=== PATIENT | male | born 1935 | race Caucasian/White ===

== ENCOUNTER 2017-02-17 15:04 | Inpatient (IN) | payer OTHER, MEDICARE, BC ==
[~2017-02-17] VITALS: Ht 165.1 cm; Wt 106.8 kg
--- NOTE | ~2017-02-17 | CON ---
[place], [place] REPORT OF CONSULTATION NAME: TANJA AMES [facility] #: [id number] UNIT #: [id number] ROOM: 407 DOCTOR: CECILIA HATCH MD BIRTHDATE: [birth year] DOS: 02/18/2017 REASON FOR CONSULTATION: Acute on chronic kidney disease/hyperkalemia. The patient known to you. HISTORY OF PRESENT ILLNESS: This is a 81-year-old male. He has a past medical history of known chronic kidney disease secondary to diabetic nephropathy and hypertensive nephrosclerosis. He has a history of coronary artery disease, anemia, and hyperlipidemia. 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 The patient follows with my partner, Dr. Ontiveros in the office. It seems his baseline creatinine levels have been in the low 2s range with fluctuations at times. From what I can understand, the patient had an outpatient labs at the [facility] and was told to go to the hospital because they were abnormal. When he came in the hospital, his creatinine was 2.8 and potassium was 5.4; therefore, he was admitted. Labs apparently showed this morning a potassium of 6.2. He was given Kayexalate and the patient states he is since he has been in the hospital. He states he felt worse since he was told to come in. Currently, he feels well. He denies shortness of breath, fevers, chills or night sweats. It seems he received some IV fluids and creatinine was 2.3 this morning. He has had some slow progression over time according to the old records of his chronic kidney disease. ALLERGIES: No known drug allergies. HOME MEDICATIONS: Reviewed and include Tylenol, amlodipine, aspirin, Lipitor, Coreg, clonidine, vitamin D, fenofibrate, glyburide, indomethacin, insulin and Prilosec. PAST MEDICAL HISTORY: 1. Known chronic kidney disease as stated above. 2. 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 3. Hypertension. 4. Diabetes mellitus. 5. Cataract. 6. GERD. 7. Gout. 8. Hyperlipidemia. 9. Left ventricular hypertrophy. 10. History of cardiac catheterization. 11. Cataract extraction. 12. Cholecystectomy. 13. Tonsillectomy. 14. Colonoscopy. 15. Hypertension. 16. Anemia. FAMILY HISTORY: Negative for chronic kidney disease, otherwise noncontributory. SOCIAL HISTORY: No tobacco, alcohol or illicit drugs. [place], [place] REPORT OF CONSULTATION NAME: TANJA AMES UNIT #: [id number] ROOM: 407 DOCTOR: CECILIA HATCH MD BIRTHDATE: [birth year] REVIEW OF SYSTEMS: As per HPI, otherwise a 10-point review of systems was reviewed and was negative. PHYSICAL EXAMINATION: VITAL SIGNS: Temperature afebrile, pulse 90, respiratory rate 20, blood pressure 150/64. GENERAL: He is pleasant, awake, alert, resting comfortably, in no acute distress. HEENT: Shows no JVD. Sclerae are anicteric. Mucous membranes are moist. Pharynx is clear. NECK: Supple. Trachea midline. There is no neck lymphadenopathy. There is no thyromegaly. LUNGS: Clear. No crackles, wheezing, or rales. No tactile fremitus. He was not using accessory muscles of respiration. HEART: Normal S1, S2. No rub, thrill or gallop. ABDOMEN: Soft, nontender. There is no organomegaly or rigidity, rebound or guarding. There is no CVA tenderness. EXTREMITIES: He has had no edema. There is no lower extremity lymphadenopathy. Distal pulses are 2+. SKIN: Showed no overt rash. There is no petechiae or purpura. Skin temperature was warm. NEUROLOGIC: He is awake, alert and following commands. Cranial nerves were intact. DIAGNOSTIC DATA: BUN 52, creatinine 2.3, sodium 140, potassium 6.2, carbon dioxide 29, calcium 8.7, phosphorus 3.6, magnesium 1.6. Hemoglobin 8.9, white count of 5.6, platelets 192. IMPRESSION: 1. Acute on chronic kidney disease with a baseline creatinine that appears to be in the low 2s range secondary to diabetic nephropathy and hypertensive nephrosclerosis. The patient has had fluctuating creatinine levels at times and his current creatinine is at baseline. 2. Hyperkalemia, which seems to be a chronic problem with likely type 4 . 3. Anemia of chronic disease. 4. Hypertension. 5. Diabetes mellitus. 6. History of gastroesophageal reflux disease. PLAN: 1. We will check labs today since the patient received Kayexalate with high potassium level. 2. Dose meds for current creatinine clearance. Discontinue IV fluids. His creatinine appears to be at baseline. 3. Place on a potassium restriction. 4. No ELMER inhibitors or ARBs. 5. Clarify if the patient is taking indomethacin. This should be discontinued. NSAIDs should be avoided. 6. If his creatinine remains fairly stable and his potassium is acceptable, he will be fine for discharge and he can follow up with Dr. Ontiveros in the office. [place], [place] REPORT OF CONSULTATION NAME: TANJA AMES UNIT #: [id number] ROOM: 407 DOCTOR: MAMIE SYLVESTER,CECILIA Horton BIRTHDATE: [birth year] Thank you for this consultation. We will follow with you. CECILIA HATCH MD CM:CONSTR:REPORT OF CONSULTATION 1535 02/18/17 2311 interface
--- NOTE | ~2017-02-17 | PR ---
[place], [place] PROGRESS NOTE NAME: TANJA AMES [facility] #: [id number] UNIT #: [id number] ROOM: 407 DOCTOR: CECILIA HATCH MD BIRTHDATE: [birth year] DOS: 02/19/2017 SUBJECTIVE: The patient was seen and examined. He is awake and alert. He feels well. He is being discharged to home. Denies any complaints. Denies shortness of breath. PHYSICAL EXAMINATION: VITAL SIGNS: Temperature afebrile, pulse 76, respiratory rate 20, blood pressure ____. HEENT AND NECK: Shows no JVD. LUNGS: Clear. No wheeze. HEART: Normal S1, S2. No rub, thrill or gallop. ABDOMEN: Soft, nontender. There is no organomegaly. EXTREMITIES: Showed no edema. SKIN: Showed no rash. LABORATORY DATA: Hemoglobin 9.6, white count of 7.0, platelets of 207. BUN 38, creatinine 2.09, sodium 140, potassium 4.8, CO2 of 24, calcium is 8.5. IMPRESSION: 1. Acute on chronic kidney disease. The patient's creatinine is at baseline. 2. Hyperkalemia. This has resolved. 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 Avoid ELMER inhibitors and ARBs at this time. 3. Anemia. H and H are fairly stable. 4. Hypertension. Current medications are to continue. 5. The patient is stable for discharge from renal standpoint. He should follow up with Dr. Ontiveros of our service in the office. CECILIA HATCH MD CM:PNTRANS [phone] CECILIA HATCH MD 02/19/171947 interface
[~2017-02-17 15:04] MED LIST: 8 HOUR650 MG PO; AMLODIPINE BESYL5 MG PO; AMLODIPINE10 MG PO; ASPIRIN81 M1 PO; ATORVASTATIN CA80 M1 PO; BENZONATATE100 M1 PO; BISACODYL5 MG PO; CLINDAMYCIN HC300 MG PO; CLONIDINE0.3 MG PO; COREG12.5 M1 PO; COREG6.25 MG PO; CRESTOR20 MG PO; FENOFIBRATE160 MG PO; FOSINOPRIL SODI40 MG PO; FOSINOPRIL40 MG PO; GLYBURIDE5 MG PO; HYDR25T PO; HYDRALAZINE HYD50 MG PO; HYDROCODONE BIT1 T11 PO; INDOMETHACIN50 MG PO; LASIX40 MG PO; LOPRESSOR25 MG PO; LOW DOSE ASPIRI81 MG PO; METFORMIN500 MG PO; MONOPRIL PO; NORCO 5-325 TA1 EACH PO; NORVASC2.5 MG PO; NOVOLIN N100 U/ML SC; OMEPRAZOLE20 MG PO; PRILOSEC20 M1 PO; PRILOSEC40 M1 PO; TEMAZEPAM15 M1 PO; VITAMIN D50000 I3 PO; [UNRECOGNIZED DRUG - REMARK]
[2017-02-17 15:09] VITALS: BP 171/64
[2017-02-17 15:28] LABS: BASO # 0.1 10*3/uL (0.0-0.1); EOS # 0.2 10*3/uL (0.0-0.4); EOS % 3.8 % (1.0-4.0); HEMATOCRIT 31.3 % (42.0-52.0); HEMOGLOBIN 10.1 g/dl (14.0-18.0); LYMPH # 1.3 10*3/uL (1.3-4.4); LYMPH % 21.5 % (27.0-41.0); MEAN CELL VOLUME 87.4 fl (80.0-94.0); MEAN CORPUSCULAR HGB 28.2 pg (27.0-31.0); MEAN CORPUSCULAR HGB CONC 32.3 g/dl (33.0-37.0); MEAN PLATELET VOLUME 9.4 fl (9.6-12.3); MONO # 0.6 10*3/uL (0.1-1.0); MONO % 9.2 % (3.0-9.0); NEUT # 3.9 10*3/uL (2.3-7.9); NEUT % 64.2 % (47.0-73.0); PLATELET COUNT AUTOMATED 229 10*3/uL (130-400); RED BLOOD COUNT 3.58 10*6/uL (4.50-5.90); RED CELL DISTRI WIDTH 13.9 % (0-14.5); WHITE BLOOD COUNT 6.1 10*3/uL (4.8-10.8)
[2017-02-17 15:36] LABS: ACT PARTIAL THROMBO TIME 24.2 SECONDS (20.8-31.5); INTERNATIONAL NORM RATIO 1.1 (2.0-3.5)
[2017-02-17 15:42] LABS: ALBUMIN 4.1 gm/dl (3.1-4.5); CREATININE 2.81 mg/dL (0.70-1.30); POTASSIUM 5.4 mmol/L (3.5-5.1); TOTAL PROTEIN 8.3 gm/dL (6.4-8.2)
[2017-02-17 16:21] VITALS: BP 134/49
[2017-02-17 16:40] VITALS: BP 134/49
--- NOTE | 2017-02-17 16:45 | NUR ---
A 81, admitted to , under the services of KALIA Castro DO with a diagnosis of acute kidney injury. Chief complaint is pt was at [facility] and had labs drawn. Pt received call today to come to the ER due to labs. Patient arrived via stretcher from ER. Monitor applied. Initial assessment completed. Vital signs taken and recorded. See assessment for past medical history, medications and allergies. Patient oriented to unit. [facility] visitation policy reviewed. WOJCIECH MEDRANO
[2017-02-17 17:00] VITALS: BP 134/62
--- NOTE | 2017-02-17 17:40 | NUR ---
Spoke with Barb at answering service for Dr. Ontiveros. Details regarding consult given to her. Awaiting return call.
[2017-02-17] MEDS ORDERED: FOSINOPRIL SODI40 MG PO (18:22)
[2017-02-17] MEDS ORDERED: RANITIDINE HCL150 M1 PO (18:24)
[2017-02-17] MEDS ORDERED: FUROSEMIDE40 MG PO (18:27)
[2017-02-17] MEDS ORDERED: GABAPENTIN100 M2 PO (18:28)
[2017-02-17] MEDS ORDERED: HYDRALAZINE HYD50 MG PO (18:29)
[2017-02-17] MEDS ORDERED: LANTUS SOL100 UNIT/1 SC (18:30)
[2017-02-17] MEDS ORDERED: HYDR25T PO (18:30)
[2017-02-17] MEDS ORDERED: NOVOLOG FL100 UNIT/1 SC (18:31)
--- NOTE | 2017-02-17 18:33 | NUR ---
Medication reviewed with pt over the phone and med rec updated.
--- NOTE | 2017-02-17 18:34 | NUR ---
Dr. Roth notified that med rec was updated. Also notified that range technician called and pt HR was in high 30's. Pt was sleeping at the time. Dr. Roth states she is aware that pt has a hx of this and he is asymptomatic.
[2017-02-17 20:00] VITALS: BP 129/45
[2017-02-17 20:17] LABS: BILIRUBIN NEGATIVE (NEGATIVE); BLOOD NEGATIVE (NEGATIVE); CLARITY CLEAR (CLEAR); COLOR YELLOW (YELLOW); GLUCOSE NEGATIVE (NEGATIVE); KETONE NEGATIVE (NEGATIVE); LEUKO ESTERASE NEGATIVE (NEGATIVE); NITRITE NEGATIVE (NEGATIVE); PH 5.5 (5.0-9.0); SPECIFIC GRAVITY 1.015 (1.005-1.030); UROBILINOGEN 0.2 E.U./dl (0.2-1.0)
[2017-02-17 20:32] LABS: BACTERIA TRACE; EPITHELIAL CELLS 0-2; WBC 0-2 wbc/hpf (0-5)
[2017-02-18] VITALS: BP 128/50
[2017-02-18 06:16] LABS: BASO # 0.1 10*3/uL (0.0-0.1); BASO % 0.9 % (0.0-1.0); EOS # 0.2 10*3/uL (0.0-0.4); EOS % 4.3 % (1.0-4.0); HEMATOCRIT 28.4 % (42.0-52.0); HEMOGLOBIN 8.9 g/dl (14.0-18.0); LYMPH # 1.4 10*3/uL (1.3-4.4); LYMPH % 24.8 % (27.0-41.0); MEAN CELL VOLUME 87.7 fl (80.0-94.0); MEAN CORPUSCULAR HGB 27.5 pg (27.0-31.0); MEAN CORPUSCULAR HGB CONC 31.3 g/dl (33.0-37.0); MEAN PLATELET VOLUME 9.9 fl (9.6-12.3); MONO # 0.6 10*3/uL (0.1-1.0); MONO % 9.9 % (3.0-9.0); NEUT # 3.3 10*3/uL (2.3-7.9); NEUT % 59.9 % (47.0-73.0); PLATELET COUNT AUTOMATED 192 10*3/uL (130-400); RED BLOOD COUNT 3.24 10*6/uL (4.50-5.90); RED CELL DISTRI WIDTH 13.8 % (0-14.5); WHITE BLOOD COUNT 5.6 10*3/uL (4.8-10.8)
[2017-02-18 06:55] LABS: ALBUMIN 3.4 gm/dl (3.1-4.5); CREATININE 2.32 mg/dL (0.70-1.30); PHOSPHOROUS 3.6 mg/dL (2.5-4.9); TOTAL PROTEIN 7.1 gm/dL (6.4-8.2)
[2017-02-18 06:57] LABS: INTERNATIONAL NORM RATIO 1.1 (2.0-3.5)
[2017-02-18 07:01] LABS: THYROID STIM HORMONE (HS) 2.16 uIU/ml (0.358-4.75)
[2017-02-18 07:05] LABS: POTASSIUM 6.2 mmol/L (3.5-5.1)
--- NOTE | 2017-02-18 07:07 | NUR ---
CRITICAL K 6.2 CALLED [address]DR. PETTY
[2017-02-18 08:00] VITALS: BP 166/56; BP 166/565
[2017-02-18 08:27] LABS: VITAMIN D, 25-HYDROXY 26.7 ng/mL (30-100)
--- NOTE | 2017-02-18 10:02 | NUR ---
MEDICATED PT WITH KAYEXALATE PER ORDER FOR POTASSIUM LEVEL OF 6.2.
--- NOTE | 2017-02-18 11:42 | NUR ---
PT REPORTS HAVING 3 BM'S, PT BECAME NAUSEATED WHILE HAVING BM AND HAD ONE EMESIS. NOTIFIED DR HARLEY.
[2017-02-18 12:00] VITALS: BP 150/64
--- NOTE | 2017-02-18 13:30 | NUR ---
MEDICATED WITH ZOFRAN PER PRN ORDER FOR COMPLAINTS OF NAUSEA AND VOMITING. WILL MONITOR FOR EFFECTIVENESS.
--- NOTE | 2017-02-18 15:00 | NUR ---
PT RESTING MORE COMFORTABLY, STATES ZOFRAN WAS EFFECTIVE FOR NAUSEA.
[2017-02-18 16:00] VITALS: BP 165/52
[2017-02-18 17:56] LABS: CREATININE 2.29 mg/dL (0.70-1.30); POTASSIUM 5.6 mmol/L (3.5-5.1)
[2017-02-18 20:00] VITALS: BP 170/56
--- NOTE | 2017-02-18 20:23 | NUR ---
CALLED DR. PANG FOR PT REPORTING HEART BURN. ORDERS RECIEVED
[2017-02-19] VITALS: BP 158/57
[2017-02-19 06:41] LABS: BASO # 0.1 10*3/uL (0.0-0.1); BASO % 0.9 % (0.0-1.0); EOS # 0.1 10*3/uL (0.0-0.4); EOS % 1.6 % (1.0-4.0); HEMATOCRIT 29.5 % (42.0-52.0); HEMOGLOBIN 9.6 g/dl (14.0-18.0); LYMPH # 1.4 10*3/uL (1.3-4.4); LYMPH % 20.3 % (27.0-41.0); MEAN CELL VOLUME 88.1 fl (80.0-94.0); MEAN CORPUSCULAR HGB 28.7 pg (27.0-31.0); MEAN CORPUSCULAR HGB CONC 32.5 g/dl (33.0-37.0); MEAN PLATELET VOLUME 9.5 fl (9.6-12.3); MONO # 0.8 10*3/uL (0.1-1.0); MONO % 10.8 % (3.0-9.0); NEUT # 4.7 10*3/uL (2.3-7.9); NEUT % 66.1 % (47.0-73.0); PLATELET COUNT AUTOMATED 207 10*3/uL (130-400); RED BLOOD COUNT 3.35 10*6/uL (4.50-5.90); RED CELL DISTRI WIDTH 13.8 % (0-14.5)
[2017-02-19 06:55] LABS: CREATININE 2.09 mg/dL (0.70-1.30); POTASSIUM 4.8 mmol/L (3.5-5.1)
[2017-02-19 08:00] VITALS: BP 160/48
[2017-02-19] MEDS ORDERED: NORVASC5 MG PO (11:37)
[2017-02-19] MEDS ORDERED: VITAMIN D31000 UNI1 PO (11:37)
--- NOTE | 2017-02-19 12:03 | NUR ---
HEPLOCK AND GRAIN HANDLER DISCONTINUED. DISCHARGE INSTRUCTIONS REVIEWED. PT IS CALLING HIS FOR A RIDE HOME.
--- NOTE | 2017-02-19 12:49 | NUR ---
DISCHARGE TEACHING DISCUSSED WITH PATIENT AND HIS , PT DENIES NEEDING WHEELCHAIR AND AMBULATED OFF THE FLOOR WITH HIS AT THIS TIME.
== END 2017-02-19 12:49 | disposition home or self-care (01) | DRG 684 ==
LOC: ED 15:04 → EDHOLD 15:55 → 4E 16:29
PROVIDERS: Emergency Medicine; Hospitalist; Internal Medicine Nephrology; ADMIT Internal Medicine
DX: N17.0 Acute kidney failure with tubular necrosis (principal); E11.22 Type 2 diabetes mellitus with diabetic chronic kidney disease; E11.49 Type 2 diabetes mellitus with other diabetic neurological complication; E87.5 Hyperkalemia; E78.2 Mixed hyperlipidemia; R00.1 Bradycardia, unspecified; I25.10 Atherosclerotic heart disease of native coronary artery without angina pectoris; K21.9 Gastro-esophageal reflux disease without esophagitis; D63.8 Anemia in other chronic diseases classified elsewhere; N18.3 Chronic kidney disease, stage 3 (moderate); E55.9 Vitamin D deficiency, unspecified; E66.01 Morbid (severe) obesity due to excess calories; I13.10 Hypertensive heart and chronic kidney disease without heart failure, with stage 1 through stage 4 chronic kidney disease, or unspecified chronic kidney disease; Z96.1 Presence of intraocular lens; Z87.891 Personal history of nicotine dependence; Z90.49 Acquired absence of other specified parts of digestive tract; Z98.41 Cataract extraction status, right eye; M1A.9XX0 Chronic gout, unspecified, without tophus (tophi); Z82.49 Family history of ischemic heart disease and other diseases of the circulatory system; Z83.3 Family history of diabetes mellitus; Z82.3 Family history of stroke; Z80.9 Family history of malignant neoplasm, unspecified; Z79.82 Long term (current) use of aspirin; Z79.4 Long term (current) use of insulin; Z79.899 Other long term (current) drug therapy; Z68.39 Body mass index [BMI] 39.0-39.9, adult

== ENCOUNTER 2017-02-20 11:00 | Inpatient (IN) | payer MEDICARE, BC, OTHER ==
[~2017-02-20] VITALS: Ht 162.5 cm; Wt 103.1 kg
--- NOTE | ~2017-02-20 | CON ---
[place], [place] REPORT OF CONSULTATION NAME: TANJA AMES [facility] #: [id number] UNIT #: [id number] ROOM: 424 DOCTOR: TIERRA LAMA MD BIRTHDATE: [birth year] DOS: 02/20/2017 REASON FOR CONSULTATION: Elevated troponin and vomiting. HISTORY OF PRESENT ILLNESS: The patient is a 81-year-old man who was sent to the emergency room on 02/19/2017 by his physicians at the [facility] who found hyperkalemia and worsening renal function. In the emergency room, his potassium was 5.4 and creatinine was 2.8. He was treated with IV fluids and Kayexalate. His potassium normalized and his renal function returned to its baseline. He was seen by nephrology who adjusted his calcium channel blockers and stopped ELMER inhibitors. He was allowed to go home, but subsequently developed severe nausea and intractable vomiting. He therefore presented back to the emergency room today and was admitted. At the time of admission, he was noted to have elevation in his troponin at 0.442. It had not been elevated to that degree in the past despite his renal insufficiency and therefore, cardiology was asked to comment on his status. The patient had been admitted to [facility] and transferred to the [facility] in May 2015 when he presented with chest pain. Catheterization done on 05/20/2015 showed a normal left main with mild diffuse disease in the LAD, first and second diagonal branches were felt to be moderate sized without severe disease. The circumflex had a first obtuse marginal branch and no stenosis was seen. The right coronary artery was a dominant vessel with proximal calcification. There was mild disease in the distal vessel and no disease in the right PDA or posterolateral branch. Angiography was not done because of his renal insufficiency. The patient currently has abdominal discomfort, nausea and shaking. He denies any chest pain or dyspnea. PAST MEDICAL HISTORY: Includes: 1. Type 2 diabetes mellitus. 2. Essential hypertension. 3. Hypertensive heart disease with left ventricular hypertrophy. 4. Obesity. 5. Chronic sinus bradycardia, which is asymptomatic. 6. Normocytic anemia. 7. Chronic renal insufficiency, stage 3. 8. History of diabetic neuropathy. 9. Status post cardiac catheterization 05/20/2015, which showed normal left main, mild diffuse LAD stenosis, normal circumflex, proximal right coronary artery calcification with mild distal disease, but no obstructive disease in the PDA or posterolateral branch. 10. History of cholecystectomy, colonoscopy, tonsillectomy and cataract resections. MEDICATIONS: Prior to admission acetaminophen p.r.n., amlodipine 5 mg daily, aspirin 81 mg daily, atorvastatin 80 mg at bedtime, vitamin D 1000 units daily, clonidine 0.3 mg t.i.d., furosemide 40 mg daily, gabapentin 100 mg t.i.d., hydralazine 50 mg t.i.d., hydrochlorothiazide 25 mg daily, omeprazole 40 mg [place], [place] REPORT OF CONSULTATION NAME: TANJA AMES UNIT #: [id number] ROOM: 424 DOCTOR: TIERRA LAMA MD BIRTHDATE: [birth year] daily, ranitidine 150 mg daily, NovoLog insulin 24 units subcutaneously before lunch and supper, Lantus insulin 58 units subcutaneously at bedtime. ALLERGIES: The patient has no known drug allergies. FAMILY HISTORY: The patient's father at age 70 from a stroke. His mother at age 85 from cancer of unknown type. REVIEW OF SYSTEMS: The patient denies diplopia or loss of vision. He feels generally weak and shaking. He denies dyspnea or chest pain. He denies cough or hemoptysis. He denies hematemesis, but he is vomiting. He does have abdominal distention and pain. He denies any peripheral edema. He has not had any syncope or focal weakness. Remainder of the review of systems is negative except as noted above. SOCIAL HISTORY: The patient is and lives with his . He does not consume alcohol or tobacco and does not use illegal drugs. PHYSICAL EXAMINATION: GENERAL: The patient is overweight elderly white male who is awake, alert and oriented. VITAL SIGNS: Pulse is 99 and regular, blood pressure is 224/60. He is afebrile. He weighs 103.1 kg and has a body mass index of 39.1. HEENT: Normocephalic and atraumatic. Extraocular muscles are intact. Sclerae are clear. Pupils are equal, round and react to light. The oral mucosa is moist. Tongue is midline. NECK: Supple. He has no jugular distention. Carotids are full and I heard no bruits. He had no neck or supraclavicular masses and no thyromegaly. LUNGS: Respirations are unlabored. His chest has decreased breath sounds at the bases, but no wheezes or rales. He has no presacral edema. CARDIOVASCULAR: His heart has a regular rhythm with an S4 gallop, but no S3 or murmur. The PMI is not displaced. He has no precordial heave, lift or thrill. ABDOMEN: Soft and normally active without masses, organomegaly or bruits. EXTREMITIES: Showed no edema. Peripheral pulses were felt in the feet. LABORATORY DATA: His electrocardiogram shows sinus rhythm with premature junctional contractions. He has nonspecific ST changes, especially in the lateral leads, but no acute ST elevation. I cannot rule out a previous inferior wall myocardial infarction, but there are no acute changes. IMPRESSIONS: 1. Abdominal pain with an abnormal abdominal x-ray suggesting partial small bowel obstruction. 2. Elevated troponin, most likely due to systemic illness, vomiting, etc. 3. Status post catheterization in May 2015, which showed no significant coronary disease. 4. Hypertension. PLAN: At this point, I do not think that the troponin elevation suggests any acute coronary events. I believe that the myocardial injury demonstrated this [place], [place] REPORT OF CONSULTATION NAME: TANJA AMES UNIT #: [id number] ROOM: 424 DOCTOR: TIERRA LAMA MD BIRTHDATE: [birth year] is probably due to his vomiting, hypotension, hypertension, etc. We will continue to follow him, but no other cardiac workup is planned at this time. We thank the hospitalist physicians for asking our advice regarding his care. TIERRA LAMA MD CM:CONSTR:REPORT OF CONSULTATION 1724 02/20/17 1372 interface
--- NOTE | ~2017-02-20 | PR ---
[place], [place] PROGRESS NOTE NAME: TANJA AMES [facility] #: [id number] UNIT #: [id number] ROOM: 424 DOCTOR: TIERRA LAMA MD BIRTHDATE: [birth year] DOS: 02/22/2017 SUBJECTIVE: The patient was seen at his bedside today, 02/22/2017, for followup of his hypertension and elevated troponin. He is a 81-year-old man who presented to the hospital with abdominal pain and an acute small-bowel obstruction. He did have an elevation in his troponin on admission. His history includes a cardiac catheterization done in May 2015, which showed a normal left main, mild diffuse LAD stenosis. First and second diagonal branches had no severe disease. Circumflex had a first obtuse marginal with no stenoses. The right coronary artery was a dominant vessel with proximal calcification. There was mild disease in the distal vessel. He was managed medically at that time. He does have risk factors of type 2 diabetes mellitus, hypertension and obesity. Since admission, he was treated with GI decompression utilizing an NG tube. He feels much better and has been placed on a liquid diet. PHYSICAL EXAMINATION: VITAL SIGNS: Today his pulse is 99 and regular, blood pressure is 190/74. He is afebrile. He weighs 103.1 kilograms with a body mass index of 39.1. NECK: Supple. He has no jugular distention. Carotids are full. He has no bruits. LUNGS: Respirations are unlabored. His chest is clear. HEART: Has a regular rhythm with an S4 gallop. ABDOMEN: Obese, but soft and normally active. EXTREMITIES: Showed no edema. IMPRESSION: 1. Abdominal pain with x-ray findings consistent with a partial small-bowel obstruction. The patient has improved with NG decompression of his abdomen. The NG has been removed. 2. Elevated troponin. The patient's troponin level did go up substantially, but he showed no signs by electrocardiogram or symptoms of an acute coronary syndrome. As noted above, his catheterization done just under 2 years ago showed no significant stenoses. I think that his elevation in troponin was due to a cardiac response to his systemic illness rather than an acute coronary syndrome. 3. Status post catheterization, May 2015, which showed no significant coronary artery disease. 4. Hypertension. PLAN: We will stop his intravenous beta blockers and place him on oral metoprolol. Thus far, he appears to be responding to conservative management of his bowel obstruction. No other cardiac workup is planned at this time, but we will work to control his blood pressure and pulse. I thank the hospitalist physicians for asking our advice regarding his care. [place], [place] PROGRESS NOTE NAME: TANJA AMES UNIT #: [id number] ROOM: 424 DOCTOR: TIERRA LAMA MD BIRTHDATE: [birth year] TIERRA LAMA MD CM:PNTRANS [phone] TIERRA LAMA MD 02/22/17 1201 interface
--- NOTE | ~2017-02-20 | PR ---
[place], [place] PROGRESS NOTE NAME: TANJA AMES [facility] #: [id number] UNIT #: [id number] ROOM: 424 DOCTOR: TIERRA ALMA MD BIRTHDATE: [birth year] DOS: 02/21/2017 SUBJECTIVE: The patient was seen at his bedside today for followup of his history of mild coronary artery disease and elevated troponin in the setting of an acute small-bowel obstruction. Since I saw him yesterday, an NG tube has been inserted. His abdomen is much more decompressed now and he feels substantially better. He states he still has some shaking in his arms, but it has improved. He denies any chest pain. He was noted, however, overnight to have further elevation in his troponin. The troponin had been around 0.49 and jumped to 1.24. OBJECTIVE: GENERAL: He is a well-nourished white male. He does have an NG tube in place, but he appears very comfortable. VITAL SIGNS: Pulse is 100 and regular; blood pressure is 184/98. He is afebrile. NECK: Supple. He has no jugular distention. Carotids are full. LUNGS: Respirations are unlabored. His chest is clear. HEART: Has a regular rhythm. He has a fourth heart sound, but no third heart sound or significant murmur. ABDOMEN: Soft and hypoactive. EXTREMITIES: Showed no edema. LABORATORY DATA: He does seem to be doing better clinically, despite his elevated troponin. I did review his electrocardiogram and it remains unremarkable. He is in sinus rhythm without any acute ST or T-wave changes. IMPRESSION: 1. Abdominal pain with abnormal abdominal x-ray suggesting partial small-bowel obstruction. 2. Elevated troponin. The level of troponin did go up substantially overnight, but he still shows no signs of acute ischemia on his electrocardiogram and has no chest pain. It is therefore still most likely to be due to a cardiac response to his systemic illness rather than an acute coronary syndrome. 3. Status post catheterization, May 19, which showed no significant coronary artery disease. 4. Hypertension. PLAN: I will start him on intravenous beta-yaw and convert him to oral beta yaw when he is able to take by mouth again. We will continue to follow him with his other physicians, but no other plans for cardiac assessment are pending at this time. I thank the hospitalist physicians for asking our advice regarding his care. [place], [place] PROGRESS NOTE NAME: TANJA AMES UNIT #: [id number] ROOM: 424 DOCTOR: TIERRA LAMA MD BIRTHDATE: [birth year] TIERRA LAMA MD CM:PNTRANS [id number] TIERRA LAMA MD 03/01/17 1916 interface
[2017-02-20 11:00] VITALS: BP 166/72
[~2017-02-20 11:00] MED LIST changes: +FUROSEMIDE40 MG PO; +GABAPENTIN100 M2 PO; +LANTUS SOL100 UNIT/1 SC; +NORVASC5 MG PO; +NOVOLOG FL100 UNIT/1 SC; +RANITIDINE HCL150 M1 PO; +VITAMIN D31000 UNI1 PO
[2017-02-20 11:33] LABS: ACT PARTIAL THROMBO TIME 21.3 SECONDS (20.8-31.5); INTERNATIONAL NORM RATIO 1.2 (2.0-3.5)
[2017-02-20 11:34] LABS: BASO # 0.1 10*3/uL (0.0-0.1); BASO % 0.6 % (0.0-1.0); EOS % 0.1 % (1.0-4.0); HEMATOCRIT 32.6 % (42.0-52.0); HEMOGLOBIN 10.7 g/dl (14.0-18.0); LYMPH # 0.9 10*3/uL (1.3-4.4); LYMPH % 10.5 % (27.0-41.0); MEAN CELL VOLUME 84.9 fl (80.0-94.0); MEAN CORPUSCULAR HGB 27.9 pg (27.0-31.0); MEAN CORPUSCULAR HGB CONC 32.8 g/dl (33.0-37.0); MEAN PLATELET VOLUME 9.5 fl (9.6-12.3); MONO # 0.5 10*3/uL (0.1-1.0); MONO % 5.5 % (3.0-9.0); NEUT # 7.2 10*3/uL (2.3-7.9); PLATELET COUNT AUTOMATED 225 10*3/uL (130-400); RED BLOOD COUNT 3.84 10*6/uL (4.50-5.90); RED CELL DISTRI WIDTH 13.6 % (0-14.5); WHITE BLOOD COUNT 8.7 10*3/uL (4.8-10.8)
[2017-02-20 11:41] LABS: ALBUMIN 3.9 gm/dl (3.1-4.5); CREATININE 2.04 mg/dL (0.70-1.30); TOTAL PROTEIN 8.1 gm/dL (6.4-8.2)
[2017-02-20 11:44] VITALS: BP 153/93
[2017-02-20 11:44] LABS: TROPONIN I 0.442 ng/ml (<0.045)
--- NOTE | 2017-02-20 11:57 | NUR ---
ACTIVELY VOMITING AFTER PHENERGAN. 200 CC OF GREEN EMESIS. MARK KIDD RN
[2017-02-20 12:14] VITALS: BP 164/95
--- NOTE | 2017-02-20 14:02 | NUR ---
PATIENT WITHOUT RELIEF OF N/V AFTER DOSES OF PHENERGAN.
[2017-02-20 15:30] VITALS: BP 224/60
--- NOTE | 2017-02-20 15:30 | NUR ---
A 81, admitted to , under the services of KALIA Conroy DO with a diagnosis of ELEVATED TROPONIN, INTRACTABLE NAUSEA/VOMITING. Chief complaint is NAUSEA, VOMITING. Patient arrived via bed from ER. Monitor applied. Initial assessment completed. Vital signs taken and recorded. KALIA CONROY DO notified of admission to the unit. Orders received. See assessment for past medical history, medications and allergies. Patient and/or family oriented to unit. [facility]. Clothing/patient valuable form completed. MIGUEL BOB
[2017-02-20 16:00] VITALS: BP 224/60
--- NOTE | 2017-02-20 17:45 | NUR ---
NOTIFIED OF CONSULT & SAW PT WHILE ON FLOOR. ALSO NOTIFIED AND ORDERS OBTAINED FOR IV FLUIDS.
--- NOTE | 2017-02-20 18:00 | NUR ---
16 NG tube inserted and secured without difficulty via RIGHT nares. Patient tolerated procedure well. Connected to intermittent suction. PLACEMENT CONFIRMED WITH AIR. MIGUEL BOB
[2017-02-20 20:00] VITALS: BP 210/68
--- NOTE | 2017-02-20 20:00 | NUR ---
ASSUMED CARE OF PATIENT. ASSESSMENT COMPLETE. RT REN NG TO LOW INTERMITTENT SUCTION, DRAINING GREEN. MADE AWARE OF NEED FOR URINE SPECIMEN AND ALSO NPO STATUS, PT VERBALIZES UNDERSTANDING. CALL LIGHT IN REACH. WILL CONTINUE TO MONITOR.
--- NOTE | 2017-02-20 21:00 | NUR ---
PT BP 210/70. PT VOMITTING, [facility] ZOFRAN NOT EFFECTIVE. PT C/O ABDOMINAL PAIN RATES 11/10, ONLY PO NORCO ORDERED, PT NPO. CALLED AND SPOKE TO DR AUSTIN. HE STATES HE WILL PUT ORDERS IN FOR PHENERGHAN, HYDRALAZINE, AND DILAUDID.
--- NOTE | 2017-02-20 22:57 | NUR ---
NG TUBE OUT OF PLACE. NEW NG INSERTED. CXR AT BEDSIDE TO VERIFY PLACEMENT AT THIS TIME
--- NOTE | 2017-02-20 23:33 | NUR ---
MEDICATED WITH PRN DILAUDID, PHENERGAN, AND APRESOLINE FOR C/O LOWER ABDOMINAL PAIN 8/10, NAUSEA/VOMITING, AND BP 210/70. WILL MONITOR FOR EFFECTIVENESS OF THESE MEDICATIONS
--- NOTE | 2017-02-20 23:44 | NUR ---
CXR VERIFIED PLACEMENT OF NG TUBE. CONNECTED TO LOW INTERMITTENT SUCTION AT THIS TIME.
[2017-02-21] VITALS: BP 228/72
--- NOTE | 2017-02-21 00:22 | NUR ---
PT POX 87% ON ROOM AIR. PLACED ON 2L NC. POX 94%
[2017-02-21 00:27] VITALS: BP 160/64
--- NOTE | 2017-02-21 00:30 | NUR ---
BP RECHECK 160/64. MADE DR AUSTIN AWARE. NO FURTHER ORDERS RECEIVED.
--- NOTE | 2017-02-21 00:33 | NUR ---
NO FURTHER VOMITING AT THIS TIME, PRN PHENERGAN AND JOANN ZOFRAN APPEAR TO BE EFFECTIVE. PT STATES PAIN IS NOW A 3-4/10 AND STATES DILAUDID WAS EFFECTIVE
--- NOTE | 2017-02-21 02:00 | NUR ---
PT SLEEPING. NO SIGNS OF DISTRESS NOTED AT THIS TIME. IVF INFUSING PER ORDER. NG PATENT TO LOW INT SUCTION. CALL LIGHT IN REACH. WILL CONTINUE TO MONITOR.
--- NOTE | 2017-02-21 04:40 | NUR ---
MEDICATED WITH PRN DILAUDID FOR C/O ABDOMINAL PAIN. RATES 11/10.
--- NOTE | 2017-02-21 05:31 | NUR ---
PER PATIENT, EARLIER DILAUDID EFFECTIVE
[2017-02-21 06:37] LABS: BASO % 0.2 % (0.0-1.0); HEMATOCRIT 31.7 % (42.0-52.0); HEMOGLOBIN 10.2 g/dl (14.0-18.0); LYMPH # 0.8 10*3/uL (1.3-4.4); LYMPH % 6.5 % (27.0-41.0); MEAN CELL VOLUME 87.8 fl (80.0-94.0); MEAN CORPUSCULAR HGB 28.3 pg (27.0-31.0); MEAN CORPUSCULAR HGB CONC 32.2 g/dl (33.0-37.0); MEAN PLATELET VOLUME 9.6 fl (9.6-12.3); MONO # 1.3 10*3/uL (0.1-1.0); MONO % 10.4 % (3.0-9.0); NEUT # 9.9 10*3/uL (2.3-7.9); NEUT % 82.3 % (47.0-73.0); PLATELET COUNT AUTOMATED 244 10*3/uL (130-400); RED BLOOD COUNT 3.61 10*6/uL (4.50-5.90); RED CELL DISTRI WIDTH 14.2 % (0-14.5); WHITE BLOOD COUNT 12.1 10*3/uL (4.8-10.8)
--- NOTE | 2017-02-21 06:48 | NUR ---
PT STATES DILAUDID EFFECTIVE
[2017-02-21 07:07] LABS: ACT PARTIAL THROMBO TIME 19.8 SECONDS (20.8-31.5); INTERNATIONAL NORM RATIO 1.1 (2.0-3.5)
[2017-02-21 07:08] LABS: ALBUMIN 3.9 gm/dl (3.1-4.5); CREATININE 2.35 mg/dL (0.70-1.30); POTASSIUM 4.1 mmol/L (3.5-5.1)
[2017-02-21 07:15] LABS: THYROID STIM HORMONE (HS) 1.14 uIU/ml (0.358-4.75); TOTAL PROTEIN 7.9 gm/dL (6.4-8.2)
[2017-02-21 07:34] LABS: VITAMIN D, 25-HYDROXY 18.3 ng/mL (30-100)
[2017-02-21 08:00] VITALS: BP 184/98
--- NOTE | 2017-02-21 08:32 | NUR ---
PT REQUESTED MEDICATION FOR PAIN. PAIN LOCATED IN THE ABDOMEN. PAIN IS DESCRIBED CONSTANT AND SHARP. PAIN IS INCREASED WITH HICCUPS. PAIN IS RATED AT 8 OUT OF 10. DILAUDID GIVEN.
--- NOTE | 2017-02-21 08:55 | NUR ---
NOTIFIED OF CRITICAL TROPONIN LEVELS REPORTED BY LAB.
--- NOTE | 2017-02-21 09:00 | NUR ---
Front Desk Person in to talk to patient. Patient states lives at home with . There are few steps in the home. Physician: giana Pharmacy: [facility] Home health services: none Patient's level of ADLs: MINIMAL ASSIST Patient has working utilities: all working DME: none Follow-up physician's appointment after d/c: will be made by hospitalist nurse director upon discharge Does patient want to access PORTAL?: no Discharge plan discussed with patient, patient lives at home with , states he will be going back when able and denies any home needs. BRIAN MEHTA
--- NOTE | 2017-02-21 09:01 | NUR ---
PER PT, PRN PAIN MEDICATION WAS EFFECTIVE FOR PAIN. WILL CONTINUE TO MONITOR.
--- NOTE | 2017-02-21 11:33 | NUR ---
PT REQUESTED PRN PAIN MEDICATION FOR ABDOMINAL PAIN. PAIN IS DESCRIBED CONSTANT, SHARP, AND BROUGHT ON BY HICCUPS. PAIN RATED AT 10 OUT OF 10. DILAUDID GIVEN. WILL CONTINUE TO MONITOR.
[2017-02-21 12:00] VITALS: BP 177/82
--- NOTE | 2017-02-21 12:00 | NUR ---
PRN PAIN MEDICATION EFFECTIVE PER PT. WILL CONTINUE TO MONITOR.
--- NOTE | 2017-02-21 13:24 | NUR ---
PHYSICAL THERAPY PAtient with NG Tube and high /+ Tropins. Will check patients status at alater date. Thank you for this referral. Yohana Osborne,PT
--- NOTE | 2017-02-21 14:10 | NUR ---
PT REQUESTED PRN PAIN MEDICATION FOR PAIN OF THE ABDOMEN. PAIN RATED AT 8 OUT OF 10 AND DESCRIBED CONSTANT AND SHARP AND BROUGHT ON BY HICCUPS. DILAUDID GIVEN. WILL CONTINUE TO MONITOR.
--- NOTE | 2017-02-21 14:30 | NUR ---
CRITICAL TROPONIN 0.932. NOTIFIED . NO NEW ORDERS.
--- NOTE | 2017-02-21 14:42 | NUR ---
PER PT, PRN PAIN MEDICATION WAS EFFECTIVE. WILL CONTINUE TO MONITOR.
--- NOTE | 2017-02-21 15:24 | NUR ---
DEANDRA NOTIFIED THIS NURSE THAT THE PTs NG TUBE HAS CAME OUT. RN, JEFFERSON EDMOND ASKED TO PLACE A NEW NG TUBE AND AGREED TO DO SO.
[2017-02-21 16:00] VITALS: BP 160/75
--- NOTE | 2017-02-21 18:18 | NUR ---
PT REQUESTED PRN PAIN MEDICATION FOR ABDOMINAL PAIN. PAIN IS RATED AT 9 OUT OF 10 AND DESCRIBED CONSTANT AND SHARP AND BROUGHT ON BY HICCUPS. PRN DILAUDID GIVEN. WILL CONTINUE TO MONITOR.
--- NOTE | 2017-02-21 18:32 | NUR ---
PTs NG TUBE CAME OUT FROM UNKOWN REASONS. NOTIFIED AND RECIEVED ORDERS TO KEEP THE NG TUBE OUT AND TO "GIVE THE PT A BREAK". WILL CONTINUE TO MONITOR.
--- NOTE | 2017-02-21 18:54 | NUR ---
PER PT, PRN PAIN MEDICTION WAS EFFECTIVE. WILL CONTINUE TO MONITOR.
--- NOTE | 2017-02-21 19:44 | NUR ---
DR. CASIANO IN TO SEE PATIENT AT THIS TIME, STATED THAT THE PATIENT MAY HAVE A COUPLE CUPS OF ICE CREAM AND THAT HE WILL PLACE THE PATIENT ON A CLEAR LIQUID DIET AND GIVE HIM SOMETHING TO HELP HIM MOVE HIS BOWELS.
[2017-02-21 20:00] VITALS: BP 170/84
[2017-02-22] VITALS (9 sets, daily range): BP systolic 144–210; BP diastolic 60–81
--- NOTE | 2017-02-22 00:58 | NUR ---
DR. HAYES NOTIFIED OF HIGH BP 190/78.
--- NOTE | 2017-02-22 02:45 | NUR ---
ATTEMPTED TO CALL DR. AUSTIN AT THIS TIME TO NOTIFY OF PATIENTS BLOOD PRESSURE CONTINUING TO BE ELEVATED. NO ANSWER, WILL RETRY
--- NOTE | 2017-02-22 03:11 | NUR ---
DR. Steve LAW NOTIFIED OF PATIENTS BLOOD PRESSURE 1 HOUR AFTER IV LOPRESSOR GIVEN TO BE 188/72 MANUALLY. THIS NURSE STATED THAT THE PATIENTS HOME MEDS WERE NEVER CONTINUED BECAUSE THE PATIENT WAS NPO UNTIL 8PM 02/21. DR. LAW STATED THAT SHE WOULD PUT IN THE PATIENTS BLOOD PRESSURE PILLS FROM HOME, AND GIVE THE PATIENT THE SAME DOSE OF IV HYDRALAZINE THAT HE RECIEVED LAST NIGHT OF 10MG AND IF THE PATIENTS BLOOD PRESSURE DROPS TOO MUCH WE CAN HOLD THE MORNING DOSES OF BLOOD PRESSURE PILLS
--- NOTE | 2017-02-22 03:39 | NUR ---
DURING MED PASS PT RESTING AND AROUSES EASILY. COVERED WITH BLANKET PER PT REQUEST.
--- NOTE | 2017-02-22 04:29 | NUR ---
DR. Steve LAW NOTIFIED OF PATIENTS HEART RATE INCREASING TO 140'S WITH EXERTION TO THE BATHROOM. PATIENT ASYMPTOMATIC. THIS NURSE STATED THAT IT GOES BACK DOWN WITH REST. DR. LAW STATED THAT THIS CAN BE A SIDE EFFECT OF HYDRALAZINE AND TO JUST WATCH THE PATIENT.
--- NOTE | 2017-02-22 06:37 | NUR ---
PT UP TO RR, ENCOURAGED TO USE THE BEDSIDE COMMODE WHICH HE COMPLIED.
[2017-02-22 07:54] LABS: BASO # 0.1 10*3/uL (0.0-0.1); BASO % 0.4 % (0.0-1.0); EOS % 0.1 % (1.0-4.0); HEMATOCRIT 30.1 % (42.0-52.0); HEMOGLOBIN 9.7 g/dl (14.0-18.0); LYMPH % 7.4 % (27.0-41.0); MEAN CELL VOLUME 89.9 fl (80.0-94.0); MEAN CORPUSCULAR HGB CONC 32.2 g/dl (33.0-37.0); MEAN PLATELET VOLUME 9.8 fl (9.6-12.3); MONO % 7.3 % (3.0-9.0); NEUT # 11.2 10*3/uL (2.3-7.9); NEUT % 83.9 % (47.0-73.0); PLATELET COUNT AUTOMATED 228 10*3/uL (130-400); RED BLOOD COUNT 3.35 10*6/uL (4.50-5.90); RED CELL DISTRI WIDTH 14.2 % (0-14.5); WHITE BLOOD COUNT 13.3 10*3/uL (4.8-10.8)
[2017-02-22 08:07] LABS: CREATININE 2.91 mg/dL (0.70-1.30); POTASSIUM 4.3 mmol/L (3.5-5.1)
--- NOTE | 2017-02-22 08:25 | NUR ---
PHYSICAL THERAPY PAtient evaluated on 4, full evaluation to follow. Continue with PT as per plan of care with fall, NG tube, NPO, min (A) and acute debility precautions. Patient may require SNF for impaired mobility versus home with home health, pending progress and medical outcomes. PAtient is high complexity via chart review, tests and evaluation: 48721. Thank you for this referral. eligio Osborne,PT
--- NOTE | 2017-02-22 08:30 | NUR ---
PHYSICAL THERAPY PAtient evaluated on 4, full evaluation to follow. Continue with PT as per plan of care with fall, NG tube, NPO, min (A) and acute debility precautions. Patient may require SNF for impaired mobility versus home with home health, pending progress and medical outcomes. PAtient is high complexity via chart review, tests and evaluation: 35967. Thank you for this referral. eligio Osborne,PT
--- NOTE | 2017-02-22 09:00 | NUR ---
case management visits with patient, patient denies any home needs
--- NOTE | 2017-02-22 09:57 | NUR ---
PHYSICAL THERAPY Patient refused therapy this morning saying he just walked with the evaluating therapist and he is too hot right to do therapy. He also refused to transfer to the bedside chair, saying he just got back into bed from sitting in the chair. HOWARD SHERIFF SOAPING DEPARTMENT SUPERVISOR
--- NOTE | 2017-02-22 13:23 | NUR ---
PHYSICAL THERAPY Patient presented to therapy with report of wanting to do therapy and feeling much better. Patient performed sit to stand from bedside chair with CGA X 1. Patient performed gait with W/W and CGA X 1 FOR 120' X 1 with no LOB and no other difficulty. Patient was left in seated position with call light within reach. Patient was 1:1 with this FILTER PRESS TENDER FOR 15 MINUTES TOTAL. HOWARD SHERIFF FILTER PRESS TENDER
--- NOTE | 2017-02-22 20:30 | NUR ---
BP ELEVATED; INFORMED DR. PENNY AUSTIN.
[2017-02-23] VITALS: BP 175/57
--- NOTE | 2017-02-23 01:21 | NUR ---
DR. LAW CONTACTED IN REGARDS TO PT. BLOOD PRESSURE BEING 182/68, SEE NEW ORDERS.
[2017-02-23 03:53] LABS: BILIRUBIN NEGATIVE (NEGATIVE); BLOOD TRACE-INTACT (NEGATIVE); CLARITY CLEAR (CLEAR); COLOR YELLOW (YELLOW); GLUCOSE 1+ (NEGATIVE); KETONE NEGATIVE (NEGATIVE); LEUKO ESTERASE NEGATIVE (NEGATIVE); NITRITE NEGATIVE (NEGATIVE); PH 5.5 (5.0-9.0); UROBILINOGEN 0.2 E.U./dl (0.2-1.0)
[2017-02-23 04:05] LABS: BACTERIA 3+; CALCIUM OXALATE CRYSTALS 1+; WBC 0-2 wbc/hpf (0-5)
[2017-02-23 06:00] LABS: BASO # 0.1 10*3/uL (0.0-0.1); BASO % 0.5 % (0.0-1.0); EOS # 0.1 10*3/uL (0.0-0.4); EOS % 0.7 % (1.0-4.0); HEMATOCRIT 30.1 % (42.0-52.0); HEMOGLOBIN 9.7 g/dl (14.0-18.0); LYMPH # 1.3 10*3/uL (1.3-4.4); LYMPH % 12.3 % (27.0-41.0); MEAN CELL VOLUME 88.3 fl (80.0-94.0); MEAN CORPUSCULAR HGB 28.4 pg (27.0-31.0); MEAN CORPUSCULAR HGB CONC 32.2 g/dl (33.0-37.0); MEAN PLATELET VOLUME 9.9 fl (9.6-12.3); MONO # 0.8 10*3/uL (0.1-1.0); NEUT # 8.2 10*3/uL (2.3-7.9); NEUT % 77.9 % (47.0-73.0); PLATELET COUNT AUTOMATED 231 10*3/uL (130-400); RED BLOOD COUNT 3.41 10*6/uL (4.50-5.90); RED CELL DISTRI WIDTH 14.1 % (0-14.5); WHITE BLOOD COUNT 10.4 10*3/uL (4.8-10.8)
[2017-02-23 06:18] LABS: CREATININE 2.1 mg/dL (0.70-1.30); POTASSIUM 4.2 mmol/L (3.5-5.1)
--- NOTE | 2017-02-23 07:30 | NUR ---
Patient resting quietly with no c/o discomfort. Respirations easy and regular. Vital signs stable. No overt distress. LUKE YIN
[2017-02-23 08:00] VITALS: BP 153/46
[2017-02-23] MEDS ORDERED: AMLODIPINE BESY10 MG PO (10:42)
--- NOTE | 2017-02-23 10:59 | NUR ---
PHYSICAL THERAPY Patient refused therapy this AM, states he is waiting on his because he wants to go home and has been walking in his room all morning. Kristal Canada, POWER TONG OPERATOR
--- NOTE | 2017-02-23 12:20 | NUR ---
Discharge instructions reviewed with patient/family. Patient receptive and verbalizes understanding. Follow-up care arranged. Written instructions given to patient/family. LUKE YIN
--- NOTE | 2017-02-24 07:53 | NUR ---
PHYSICAL THERAPY CO-SIGN I approve of the Phyical Therapy notes written above. RADHA BOOTH PT
== END 2017-02-23 12:20 | disposition home or self-care (01) | DRG 388 ==
LOC: ED 11:00 → 4E 12:31 → EDHOLD 12:31 → 4E 14:52
PROVIDERS: Emergency Medicine; Internal Medicine; Student in an Organized Health Care Education/Training Program; ADMIT Internal Medicine
PROC: 0D9670Z Drainage of Stomach with Drainage Device, Via Natural or Artificial Opening (ICD-10-PCS; principal; 2017-02-20)
DX: K56.609 Unspecified intestinal obstruction, unspecified as to partial versus complete obstruction (principal); R65.11 Systemic inflammatory response syndrome (SIRS) of non-infectious origin with acute organ dysfunction; E11.22 Type 2 diabetes mellitus with diabetic chronic kidney disease; Z68.41 Body mass index [BMI] 40.0-44.9, adult; E11.42 Type 2 diabetes mellitus with diabetic polyneuropathy; N18.3 Chronic kidney disease, stage 3 (moderate); I13.10 Hypertensive heart and chronic kidney disease without heart failure, with stage 1 through stage 4 chronic kidney disease, or unspecified chronic kidney disease; E66.01 Morbid (severe) obesity due to excess calories; E83.42 Hypomagnesemia; D72.810 Lymphocytopenia; M10.072 Idiopathic gout, left ankle and foot; Z96.1 Presence of intraocular lens; E78.5 Hyperlipidemia, unspecified; K21.9 Gastro-esophageal reflux disease without esophagitis; Z98.42 Cataract extraction status, left eye; Z98.41 Cataract extraction status, right eye; Z90.49 Acquired absence of other specified parts of digestive tract; Z82.3 Family history of stroke; Z80.9 Family history of malignant neoplasm, unspecified; Z79.1 Long term (current) use of non-steroidal anti-inflammatories (NSAID); Z79.82 Long term (current) use of aspirin; Z79.4 Long term (current) use of insulin; Z79.899 Other long term (current) drug therapy; E87.5 Hyperkalemia

== ENCOUNTER 2017-04-06 11:16 | Inpatient (IN) | payer OTHER ==
[~2017-04-06] VITALS: Ht 162.5 cm; Wt 100.2 kg
[~2017-04-06 11:16] MED LIST changes: +AMLODIPINE BESY10 MG PO
[2017-04-06 11:43] VITALS: BP 163/63
[2017-04-06 11:58] LABS: BASO # 0.1 10*3/uL (0.0-0.1); BASO % 1.1 % (0.0-1.0); EOS # 0.2 10*3/uL (0.0-0.4); EOS % 2.4 % (1.0-4.0); HEMATOCRIT 34.3 % (42.0-52.0); HEMOGLOBIN 10.9 g/dl (14.0-18.0); LYMPH # 1.8 10*3/uL (1.3-4.4); LYMPH % 17.8 % (27.0-41.0); MEAN CELL VOLUME 88.2 fl (80.0-94.0); MEAN CORPUSCULAR HGB CONC 31.8 g/dl (33.0-37.0); MEAN PLATELET VOLUME 9.1 fl (9.6-12.3); MONO # 0.8 10*3/uL (0.1-1.0); MONO % 8.2 % (3.0-9.0); NEUT # 6.9 10*3/uL (2.3-7.9); NEUT % 70.3 % (47.0-73.0); PLATELET COUNT AUTOMATED 353 10*3/uL (130-400); RED BLOOD COUNT 3.89 10*6/uL (4.50-5.90); RED CELL DISTRI WIDTH 13.7 % (0-14.5); WHITE BLOOD COUNT 9.8 10*3/uL (4.8-10.8)
[2017-04-06 12:16] LABS: ALBUMIN 4.4 gm/dl (3.1-4.5); ALKALINE PHOSPHATASE 76 U/L (45-117); BUN 51 mg/dl (7-24); CHLORIDE 106 mmol/L (98-107); POTASSIUM 5.9 mmol/L (3.5-5.1); SGOT/AST 17 IU/L (3-35); SGPT/ALT 27 U/L (12-78); SODIUM 138 mmol/L (136-145); TOTAL PROTEIN 8.6 gm/dL (6.4-8.2)
[2017-04-06 12:17] LABS: TROPONIN I < 0.015 ng/ml (<0.045)
[2017-04-06 13:00] VITALS: BP 123/44
[2017-04-06 14:00] VITALS: BP 190/56
[2017-04-06] MEDS ORDERED: NOVOLOG10 ML SC (14:39)
[2017-04-06 14:40] VITALS: BP 120/64
[2017-04-06 14:42] VITALS: BP 178/61
[2017-04-06 15:37] LABS: BILIRUBIN NEGATIVE (NEGATIVE); BLOOD NEGATIVE (NEGATIVE); CLARITY CLEAR (CLEAR); COLOR YELLOW (YELLOW); GLUCOSE NEGATIVE (NEGATIVE); KETONE NEGATIVE (NEGATIVE); LEUKO ESTERASE NEGATIVE (NEGATIVE); NITRITE NEGATIVE (NEGATIVE); SPECIFIC GRAVITY 1.015 (1.005-1.030); UROBILINOGEN 0.2 E.U./dl (0.2-1.0)
[2017-04-06 15:43] LABS: BACTERIA TRACE; EPITHELIAL CELLS 0-3; WBC 0-2 wbc/hpf (0-5)
[2017-04-06 15:47] LABS: URINE CREATININE RANDOM 66.3 mg/dL
[2017-04-06] MEDS ORDERED: NORVASC5 MG PO (17:30)
[2017-04-06] MEDS ORDERED: HYDRALAZINE HYD50 MG PO (17:31)
[2017-04-06] MEDS ORDERED: BETADINE T (17:34)
[2017-04-06] MEDS ORDERED: HYDROCHLOROTHIA25 M1 PO (17:36)
[2017-04-06 20:00] VITALS: BP 138/64
[2017-04-07] VITALS: BP 156/74
[2017-04-07 06:09] LABS: ALBUMIN 3.8 gm/dl (3.1-4.5); CREATININE 2.12 mg/dL (0.70-1.30); POTASSIUM 5.2 mmol/L (3.5-5.1)
[2017-04-07 06:10] LABS: PHOSPHOROUS 3.2 mg/dL (2.5-4.9)
[2017-04-07 06:12] LABS: BASO # 0.1 10*3/uL (0.0-0.1); BASO % 1.3 % (0.0-1.0); EOS # 0.3 10*3/uL (0.0-0.4); EOS % 3.3 % (1.0-4.0); HEMATOCRIT 33.5 % (42.0-52.0); HEMOGLOBIN 10.8 g/dl (14.0-18.0); LYMPH # 1.6 10*3/uL (1.3-4.4); LYMPH % 21.5 % (27.0-41.0); MEAN CELL VOLUME 88.9 fl (80.0-94.0); MEAN CORPUSCULAR HGB 28.6 pg (27.0-31.0); MEAN CORPUSCULAR HGB CONC 32.2 g/dl (33.0-37.0); MEAN PLATELET VOLUME 9.1 fl (9.6-12.3); MONO # 0.7 10*3/uL (0.1-1.0); MONO % 9.3 % (3.0-9.0); NEUT # 4.9 10*3/uL (2.3-7.9); NEUT % 64.5 % (47.0-73.0); PLATELET COUNT AUTOMATED 335 10*3/uL (130-400); RED BLOOD COUNT 3.77 10*6/uL (4.50-5.90); RED CELL DISTRI WIDTH 13.4 % (0-14.5); WHITE BLOOD COUNT 7.5 10*3/uL (4.8-10.8)
[2017-04-07 09:00] VITALS: BP 159/72
== END 2017-04-07 16:06 | disposition home or self-care (01) | DRG 683 ==
LOC: ED 11:16 → EDHOLD 12:28 → 4E 12:28
PROVIDERS: Registered Nurse; Student in an Organized Health Care Education/Training Program
DX: N17.9 Acute kidney failure, unspecified (principal); I48.92 Unspecified atrial flutter; E11.49 Type 2 diabetes mellitus with other diabetic neurological complication; E11.22 Type 2 diabetes mellitus with diabetic chronic kidney disease; E11.65 Type 2 diabetes mellitus with hyperglycemia; E66.01 Morbid (severe) obesity due to excess calories; E87.5 Hyperkalemia; N18.3 Chronic kidney disease, stage 3 (moderate); K21.9 Gastro-esophageal reflux disease without esophagitis; I12.9 Hypertensive chronic kidney disease with stage 1 through stage 4 chronic kidney disease, or unspecified chronic kidney disease; E78.5 Hyperlipidemia, unspecified; Z96.1 Presence of intraocular lens; E83.42 Hypomagnesemia; D72.824 Basophilia; I70.1 Atherosclerosis of renal artery; D64.9 Anemia, unspecified; E87.8 Other disorders of electrolyte and fluid balance, not elsewhere classified; M1A.0720 Idiopathic chronic gout, left ankle and foot, without tophus (tophi); Z79.4 Long term (current) use of insulin; Z79.82 Long term (current) use of aspirin; Z79.899 Other long term (current) drug therapy; Z80.8 Family history of malignant neoplasm of other organs or systems; Z82.3 Family history of stroke; Z90.89 Acquired absence of other organs; Z90.49 Acquired absence of other specified parts of digestive tract; Z98.41 Cataract extraction status, right eye; Z98.42 Cataract extraction status, left eye; Z68.37 Body mass index [BMI] 37.0-37.9, adult

== ENCOUNTER → 2017-05-01 | Outpatient (CLI) | payer MEDICARE, BC ==
[~2017-05-01] MED LIST changes: +BETADINE T; +HYDROCHLOROTHIA25 M1 PO; +NOVOLOG10 ML SC
[2017-05-01 13:08] LABS: BILIRUBIN NEGATIVE (NEGATIVE); BLOOD NEGATIVE (NEGATIVE); CLARITY SL CLOUDY (CLEAR); COLOR YELLOW (YELLOW); GLUCOSE NEGATIVE (NEGATIVE); KETONE NEGATIVE (NEGATIVE); LEUKO ESTERASE NEGATIVE (NEGATIVE); NITRITE NEGATIVE (NEGATIVE); UROBILINOGEN 0.2 E.U./dl (0.2-1.0)
[2017-05-01 13:12] LABS: BASO # 0.1 10*3/uL (0.0-0.1); BASO % 1.1 % (0.0-1.0); EOS # 0.4 10*3/uL (0.0-0.4); EOS % 5.9 % (1.0-4.0); HEMATOCRIT 28.1 % (42.0-52.0); HEMOGLOBIN 9.4 g/dl (14.0-18.0); LYMPH % 14.2 % (27.0-41.0); MEAN CELL VOLUME 83.9 fl (80.0-94.0); MEAN CORPUSCULAR HGB 28.1 pg (27.0-31.0); MEAN CORPUSCULAR HGB CONC 33.5 g/dl (33.0-37.0); MEAN PLATELET VOLUME 8.6 fl (9.6-12.3); MONO # 0.5 10*3/uL (0.1-1.0); MONO % 7.4 % (3.0-9.0); NEUT # 5.2 10*3/uL (2.3-7.9); NEUT % 71.1 % (47.0-73.0); PLATELET COUNT AUTOMATED 358 10*3/uL (130-400); RED BLOOD COUNT 3.35 10*6/uL (4.50-5.90); RED CELL DISTRI WIDTH 13.2 % (0-14.5); WHITE BLOOD COUNT 7.3 10*3/uL (4.8-10.8)
[2017-05-01 13:17] LABS: URINE CREATININE RANDOM 91.6 mg/dL
[2017-05-01 13:37] LABS: HYALINE CAST 40-50; RBC 0-2 rbc/hpf (0-2); WBC 0-2 wbc/hpf (0-5)
[2017-05-01 13:38] LABS: ALBUMIN 3.3 gm/dl (3.1-4.5); CREATININE 2.03 mg/dL (0.70-1.30); POTASSIUM 4.2 mmol/L (3.5-5.1)
[2017-05-01 14:49] LABS: VITAMIN D, 25-HYDROXY 19.9 ng/mL (30-100)
[2017-05-01 14:50] LABS: PTH INTACT 33.5 pg/mL (14.0-72.0)
== END | disposition home or self-care (01) ==
LOC: LAB 12:34
PROVIDERS: Internal Medicine Nephrology
DX: N18.3 Chronic kidney disease, stage 3 (moderate) (principal); D63.1 Anemia in chronic kidney disease; N25.81 Secondary hyperparathyroidism of renal origin

== ENCOUNTER 2017-06-20 13:37 | Inpatient (IN) | payer MEDICARE, BC ==
[~2017-06-20] VITALS: Ht 162.5 cm; Wt 103.9 kg
--- NOTE | ~2017-06-20 | ST ---
[place], [place] EXERCISE STRESS TEST REPORT NAME: TANJA AMES [facility] #: [id number] UNIT #: [id number] ROOM: 403 DOCTOR: OSBALDO CONCEPCION MD BIRTHDATE: [birth year] DOS: 06/21/2017 LEXISCAN STRESS EKG REPORT REFERRING PHYSICIAN: Dr. Jeff Chen. INDICATION: Central chest pain. The patient underwent standard protocol Lexiscan stress EKG. The patient's baseline EKG showed normal sinus rhythm and nonspecific ST-T wave changes. The patient's baseline heart rate was 74 with blood pressure 170/78. The patient's peak heart rate was 103 with blood pressure 140/62. The patient had no chest pain, no EKG changes, no arrhythmias. SUMMARY OF FINDINGS: Unremarkable Lexiscan stress EKG. Please see separate report for perfusion scan imaging. OSBALDO CONCEPCION MD CM:STRESS:EXERCISE STRESS TEST REPORT [id number] OSBALDO CONCEPCION MD
[2017-06-20 13:41] VITALS: BP 193/71
[2017-06-20] MEDS ORDERED: LASIX40 MG PO (13:48)
[2017-06-20 14:37] VITALS: BP 161/59
[2017-06-20 14:37] LABS: BASO # 0.1 10*3/uL (0.0-0.1); BASO % 1.4 % (0.0-1.0); EOS # 0.3 10*3/uL (0.0-0.4); EOS % 5.8 % (1.0-4.0); HEMOGLOBIN 10.6 g/dl (14.0-18.0); LYMPH # 1.2 10*3/uL (1.3-4.4); LYMPH % 20.1 % (27.0-41.0); MEAN CELL VOLUME 82.7 fl (80.0-94.0); MEAN CORPUSCULAR HGB 27.4 pg (27.0-31.0); MEAN CORPUSCULAR HGB CONC 33.1 g/dl (33.0-37.0); MEAN PLATELET VOLUME 9.2 fl (9.6-12.3); MONO # 0.5 10*3/uL (0.1-1.0); MONO % 8.5 % (3.0-9.0); NEUT # 3.8 10*3/uL (2.3-7.9); NEUT % 63.9 % (47.0-73.0); PLATELET COUNT AUTOMATED 220 10*3/uL (130-400); RED BLOOD COUNT 3.87 10*6/uL (4.50-5.90); RED CELL DISTRI WIDTH 14.6 % (0-14.5); WHITE BLOOD COUNT 5.9 10*3/uL (4.8-10.8)
[2017-06-20 14:39] LABS: BILIRUBIN NEGATIVE (NEGATIVE); BLOOD NEGATIVE (NEGATIVE); CLARITY CLEAR (CLEAR); COLOR YELLOW (YELLOW); GLUCOSE NEGATIVE (NEGATIVE); KETONE NEGATIVE (NEGATIVE); LEUKO ESTERASE NEGATIVE (NEGATIVE); NITRITE NEGATIVE (NEGATIVE); PH 5.5 (5.0-9.0); SPECIFIC GRAVITY 1.015 (1.005-1.030); UROBILINOGEN 0.2 E.U./dl (0.2-1.0)
[2017-06-20 14:51] LABS: BACTERIA 2+; EPITHELIAL CELLS 0-2; RBC 0-2 rbc/hpf (0-2)
[2017-06-20 14:52] LABS: ALBUMIN 3.6 gm/dl (3.1-4.5); ALKALINE PHOSPHATASE 62 U/L (45-117); BUN 34 mg/dl (7-24); CHLORIDE 106 mmol/L (98-107); CREATININE 1.71 mg/dL (0.70-1.30); LIPASE 191 U/L (73-393); POTASSIUM 3.8 mmol/L (3.5-5.1); SGOT/AST 19 IU/L (3-35); SGPT/ALT 25 U/L (12-78); SODIUM 139 mmol/L (136-145); TOTAL PROTEIN 7.8 gm/dL (6.4-8.2)
[2017-06-20 14:57] LABS: TROPONIN I < 0.015 ng/ml (<0.045)
[2017-06-20 15:16] VITALS: BP 177/73
[2017-06-20 15:18] LABS: ACT PARTIAL THROMBO TIME 23.7 SECONDS (20.8-31.5); INTERNATIONAL NORM RATIO 1.1 (2.0-3.5)
[2017-06-20 16:00] VITALS: BP 186/65
[2017-06-20] MEDS ORDERED: NOVOLOG FL100 UNIT/1 SQ (16:05)
[2017-06-20] MEDS ORDERED: NEURONTIN100 MG PO (17:40)
[2017-06-20 18:26] VITALS: BP 176/67
[2017-06-20 20:00] VITALS: BP 164/59
[2017-06-21] VITALS: BP 154/68
[2017-06-21 06:49] LABS: BASO # 0.1 10*3/uL (0.0-0.1); BASO % 1.6 % (0.0-1.0); EOS # 0.3 10*3/uL (0.0-0.4); EOS % 5.1 % (1.0-4.0); HEMATOCRIT 34.4 % (42.0-52.0); HEMOGLOBIN 11.1 g/dl (14.0-18.0); LYMPH # 1.2 10*3/uL (1.3-4.4); LYMPH % 20.7 % (27.0-41.0); MEAN CELL VOLUME 83.3 fl (80.0-94.0); MEAN CORPUSCULAR HGB 26.9 pg (27.0-31.0); MEAN CORPUSCULAR HGB CONC 32.3 g/dl (33.0-37.0); MEAN PLATELET VOLUME 9.7 fl (9.6-12.3); MONO # 0.5 10*3/uL (0.1-1.0); NEUT # 3.6 10*3/uL (2.3-7.9); NEUT % 63.4 % (47.0-73.0); PLATELET COUNT AUTOMATED 243 10*3/uL (130-400); RED BLOOD COUNT 4.13 10*6/uL (4.50-5.90); RED CELL DISTRI WIDTH 14.6 % (0-14.5); WHITE BLOOD COUNT 5.7 10*3/uL (4.8-10.8)
[2017-06-21 06:59] LABS: ALBUMIN 3.4 gm/dl (3.1-4.5); CREATININE 1.64 mg/dL (0.70-1.30); PHOSPHOROUS 3.6 mg/dL (2.5-4.9); POTASSIUM 4.1 mmol/L (3.5-5.1); TOTAL PROTEIN 7.6 gm/dL (6.4-8.2)
[2017-06-21 07:05] LABS: FREE T4 1.07 ng/dl (0.76-1.46); THYROID STIM HORMONE (HS) 2.18 uIU/ml (0.358-4.75)
[2017-06-21 07:08] LABS: INTERNATIONAL NORM RATIO 1.1 (2.0-3.5)
[2017-06-21 08:00] VITALS: BP 138/57
[2017-06-21 08:15] LABS: VITAMIN D, 25-HYDROXY 56.2 ng/mL (30-100)
[2017-06-21 12:00] VITALS: BP 155/64
[2017-06-21 16:00] VITALS: BP 185/69
== END 2017-06-21 17:00 | disposition home or self-care (01) | DRG 313 ==
LOC: ED 13:37 → EDHOLD 15:17 → 4E 15:17
PROVIDERS: Internal Medicine; Physician Assistant
PROC: 4A02XM4 Measurement of Cardiac Total Activity, External Approach (ICD-10-PCS; principal; 2017-06-21)
DX: R07.89 Other chest pain (principal); E11.22 Type 2 diabetes mellitus with diabetic chronic kidney disease; E11.42 Type 2 diabetes mellitus with diabetic polyneuropathy; I13.10 Hypertensive heart and chronic kidney disease without heart failure, with stage 1 through stage 4 chronic kidney disease, or unspecified chronic kidney disease; K21.9 Gastro-esophageal reflux disease without esophagitis; M1A.0720 Idiopathic chronic gout, left ankle and foot, without tophus (tophi); E78.00 Pure hypercholesterolemia, unspecified; N18.3 Chronic kidney disease, stage 3 (moderate); E78.5 Hyperlipidemia, unspecified; E55.9 Vitamin D deficiency, unspecified; E66.01 Morbid (severe) obesity due to excess calories; D72.810 Lymphocytopenia; Z79.4 Long term (current) use of insulin; Z79.82 Long term (current) use of aspirin; Z88.9 Allergy status to unspecified drugs, medicaments and biological substances; Z98.42 Cataract extraction status, left eye; Z98.41 Cataract extraction status, right eye; Z90.49 Acquired absence of other specified parts of digestive tract; Z82.3 Family history of stroke; Z80.8 Family history of malignant neoplasm of other organs or systems; Z82.49 Family history of ischemic heart disease and other diseases of the circulatory system

== ENCOUNTER 2017-06-29 07:35 | Inpatient (IN) | payer MEDICARE, BC ==
[~2017-06-29] VITALS: Ht 162.5 cm; Wt 104.3 kg
[2017-06-29] VITALS (9 sets, daily range): BP systolic 123–198; BP diastolic 48–70
[~2017-06-29 07:35] MED LIST changes: +NEURONTIN100 MG PO; +NOVOLOG FL100 UNIT/1 SQ
[2017-06-29] MEDS ORDERED: LANTUS SOL100 UNIT/1 SC (07:57)
[2017-06-29 08:15] LABS: BASO # 0.1 10*3/uL (0.0-0.1); BASO % 1.3 % (0.0-1.0); EOS # 0.2 10*3/uL (0.0-0.4); EOS % 3.9 % (1.0-4.0); HEMATOCRIT 30.9 % (42.0-52.0); HEMOGLOBIN 9.9 g/dl (14.0-18.0); LYMPH # 0.9 10*3/uL (1.3-4.4); LYMPH % 13.7 % (27.0-41.0); MEAN CELL VOLUME 83.5 fl (80.0-94.0); MEAN CORPUSCULAR HGB 26.8 pg (27.0-31.0); MEAN PLATELET VOLUME 9.2 fl (9.6-12.3); MONO # 0.6 10*3/uL (0.1-1.0); MONO % 9.3 % (3.0-9.0); NEUT # 4.4 10*3/uL (2.3-7.9); NEUT % 71.5 % (47.0-73.0); PLATELET COUNT AUTOMATED 217 10*3/uL (130-400); RED CELL DISTRI WIDTH 14.2 % (0-14.5); WHITE BLOOD COUNT 6.2 10*3/uL (4.8-10.8)
[2017-06-29 08:30] LABS: ALBUMIN 3.4 gm/dl (3.1-4.5); ALKALINE PHOSPHATASE 64 U/L (45-117); BUN 43 mg/dl (7-24); CHLORIDE 103 mmol/L (98-107); CREATININE 2.27 mg/dL (0.70-1.30); SGOT/AST 19 IU/L (3-35); SGPT/ALT 25 U/L (12-78); SODIUM 137 mmol/L (136-145); TOTAL PROTEIN 7.4 gm/dL (6.4-8.2)
[2017-06-29 08:32] LABS: TROPONIN I < 0.015 ng/ml (<0.045)
[2017-06-29] MEDS ORDERED: VITAMIN D5000 UNI1 PO (12:14)
[2017-06-30] VITALS: BP 142/60
[2017-06-30] MEDS ORDERED: NEURONTIN300 MG PO (01:24)
[2017-06-30 05:54] LABS: BASO # 0.1 10*3/uL (0.0-0.1); EOS # 0.3 10*3/uL (0.0-0.4); EOS % 4.5 % (1.0-4.0); HEMATOCRIT 31.4 % (42.0-52.0); HEMOGLOBIN 10.2 g/dl (14.0-18.0); LYMPH # 1.1 10*3/uL (1.3-4.4); LYMPH % 17.8 % (27.0-41.0); MEAN CELL VOLUME 82.2 fl (80.0-94.0); MEAN CORPUSCULAR HGB 26.7 pg (27.0-31.0); MEAN CORPUSCULAR HGB CONC 32.5 g/dl (33.0-37.0); MEAN PLATELET VOLUME 9.4 fl (9.6-12.3); MONO # 0.6 10*3/uL (0.1-1.0); MONO % 9.6 % (3.0-9.0); NEUT % 66.9 % (47.0-73.0); PLATELET COUNT AUTOMATED 239 10*3/uL (130-400); RED BLOOD COUNT 3.82 10*6/uL (4.50-5.90); RED CELL DISTRI WIDTH 14.5 % (0-14.5)
[2017-06-30 06:07] LABS: ALBUMIN 3.1 gm/dl (3.1-4.5); CREATININE 1.6 mg/dL (0.70-1.30); PHOSPHOROUS 2.5 mg/dL (2.5-4.9); POTASSIUM 3.7 mmol/L (3.5-5.1); TOTAL PROTEIN 7.2 gm/dL (6.4-8.2)
[2017-06-30 08:00] VITALS: BP 150/58
[2017-06-30] MEDS ORDERED: CYCLOBENZAPRINE10 MG PO (09:56)
== END 2017-06-30 12:18 | disposition home or self-care (01) | DRG 684 ==
LOC: ED 07:35 → 4E 11:48
PROVIDERS: Emergency Medicine; Hospitalist
DX: N17.0 Acute kidney failure with tubular necrosis (principal); E11.22 Type 2 diabetes mellitus with diabetic chronic kidney disease; E11.42 Type 2 diabetes mellitus with diabetic polyneuropathy; M25.512 Pain in left shoulder; E11.49 Type 2 diabetes mellitus with other diabetic neurological complication; D64.9 Anemia, unspecified; E66.01 Morbid (severe) obesity due to excess calories; I13.10 Hypertensive heart and chronic kidney disease without heart failure, with stage 1 through stage 4 chronic kidney disease, or unspecified chronic kidney disease; R07.89 Other chest pain; E78.2 Mixed hyperlipidemia; K21.9 Gastro-esophageal reflux disease without esophagitis; N18.3 Chronic kidney disease, stage 3 (moderate); R91.1 Solitary pulmonary nodule; E11.65 Type 2 diabetes mellitus with hyperglycemia; E55.9 Vitamin D deficiency, unspecified; M10.9 Gout, unspecified; Z96.1 Presence of intraocular lens; Z98.41 Cataract extraction status, right eye; Z90.49 Acquired absence of other specified parts of digestive tract; Z79.4 Long term (current) use of insulin; Z79.82 Long term (current) use of aspirin; Z79.899 Other long term (current) drug therapy; Z68.39 Body mass index [BMI] 39.0-39.9, adult; Z88.8 Allergy status to other drugs, medicaments and biological substances; Z82.3 Family history of stroke; Z82.49 Family history of ischemic heart disease and other diseases of the circulatory system; Z83.3 Family history of diabetes mellitus

== ENCOUNTER → 2017-07-27 | Outpatient (CLI) | payer MEDICARE, BC ==
[~2017-07-27] MED LIST changes: +CYCLOBENZAPRINE10 MG PO; +NEURONTIN300 MG PO; +VITAMIN D5000 UNI1 PO
[2017-07-27 10:36] LABS: BILIRUBIN NEGATIVE (NEGATIVE); BLOOD NEGATIVE (NEGATIVE); CLARITY CLEAR (CLEAR); COLOR YELLOW (YELLOW); GLUCOSE NEGATIVE (NEGATIVE); KETONE NEGATIVE (NEGATIVE); LEUKO ESTERASE NEGATIVE (NEGATIVE); NITRITE NEGATIVE (NEGATIVE); UROBILINOGEN 0.2 E.U./dl (0.2-1.0)
[2017-07-27 10:37] LABS: BASO # 0.1 10*3/uL (0.0-0.1); BASO % 0.9 % (0.0-1.0); EOS # 0.2 10*3/uL (0.0-0.4); EOS % 2.2 % (1.0-4.0); HEMATOCRIT 33.4 % (42.0-52.0); HEMOGLOBIN 10.7 g/dl (14.0-18.0); LYMPH # 1.4 10*3/uL (1.3-4.4); LYMPH % 19.9 % (27.0-41.0); MEAN CELL VOLUME 81.9 fl (80.0-94.0); MEAN CORPUSCULAR HGB 26.2 pg (27.0-31.0); MEAN PLATELET VOLUME 9.9 fl (9.6-12.3); MONO # 0.5 10*3/uL (0.1-1.0); MONO % 6.9 % (3.0-9.0); NEUT # 4.8 10*3/uL (2.3-7.9); NEUT % 69.8 % (47.0-73.0); PLATELET COUNT AUTOMATED 223 10*3/uL (130-400); RED BLOOD COUNT 4.08 10*6/uL (4.50-5.90); RED CELL DISTRI WIDTH 14.8 % (0-14.5); WHITE BLOOD COUNT 6.8 10*3/uL (4.8-10.8)
[2017-07-27 10:49] LABS: BACTERIA TRACE
[2017-07-27 11:11] LABS: ALBUMIN 3.8 gm/dl (3.1-4.5); CREATININE 2.18 mg/dL (0.70-1.30); PHOSPHOROUS 2.6 mg/dL (2.5-4.9); POTASSIUM 3.7 mmol/L (3.5-5.1)
[2017-07-27 12:31] LABS: PTH INTACT 94.5 pg/mL (14.0-72.0); VITAMIN D, 25-HYDROXY 84.7 ng/mL (30-100)
== END | disposition home or self-care (01) ==
LOC: LAB 10:04
PROVIDERS: Internal Medicine Nephrology
DX: N18.3 Chronic kidney disease, stage 3 (moderate) (principal); N25.81 Secondary hyperparathyroidism of renal origin

== ENCOUNTER 2017-09-12 10:04 | Emergency (ER) | payer OTHER, MEDICARE, BC ==
[~2017-09-12] VITALS: Ht 162.5 cm; Wt 104.3 kg
[2017-09-12 10:06] VITALS: BP 174/46
[2017-09-12] MEDS ORDERED: LEVOFLOXACIN500 MG PO (12:52)
== END 2017-09-12 13:01 | disposition home or self-care (01) ==
LOC: ED 10:04
DX: L03.116 Cellulitis of left lower limb (principal); E11.40 Type 2 diabetes mellitus with diabetic neuropathy, unspecified; K21.9 Gastro-esophageal reflux disease without esophagitis; E11.65 Type 2 diabetes mellitus with hyperglycemia; E78.5 Hyperlipidemia, unspecified; I12.9 Hypertensive chronic kidney disease with stage 1 through stage 4 chronic kidney disease, or unspecified chronic kidney disease; E11.22 Type 2 diabetes mellitus with diabetic chronic kidney disease; N18.3 Chronic kidney disease, stage 3 (moderate); N17.9 Acute kidney failure, unspecified; Z79.4 Long term (current) use of insulin; Z79.899 Other long term (current) drug therapy; Z90.49 Acquired absence of other specified parts of digestive tract; Z90.89 Acquired absence of other organs; Z88.8 Allergy status to other drugs, medicaments and biological substances

== ENCOUNTER 2019-05-20 22:32 | Observation (INO) | payer OTHER, MEDICARE, BC ==
[~2019-05-20] VITALS: Ht 165.1 cm; Wt 98.9 kg
[~2019-05-20 22:32] MED LIST changes: +LEVOFLOXACIN500 MG PO
[2019-05-20 22:33] VITALS: BP 176/76
[2019-05-20 23:16] LABS: BASO # 0.1 10*3/uL (0.0-0.1); EOS # 0.2 10*3/uL (0.0-0.4); EOS % 3.1 % (1.0-4.0); HEMATOCRIT 34.9 % (42.0-52.0); HEMOGLOBIN 11.4 g/dl (14.0-18.0); LYMPH % 13.2 % (27.0-41.0); MEAN CELL VOLUME 88.4 fl (80.0-94.0); MEAN CORPUSCULAR HGB 28.9 pg (27.0-31.0); MEAN CORPUSCULAR HGB CONC 32.7 g/dl (33.0-37.0); MEAN PLATELET VOLUME 9.1 fl (9.6-12.3); MONO # 0.5 10*3/uL (0.1-1.0); MONO % 7.2 % (3.0-9.0); NEUT # 5.5 10*3/uL (2.3-7.9); NEUT % 75.4 % (47.0-73.0); PLATELET COUNT AUTOMATED 246 10*3/uL (130-400); RED BLOOD COUNT 3.95 10*6/uL (4.50-5.90); RED CELL DISTRI WIDTH 13.7 % (0-14.5); WHITE BLOOD COUNT 7.4 10*3/uL (4.8-10.8)
[2019-05-20 23:25] LABS: ACT PARTIAL THROMBO TIME 25.4 SECONDS (20.0-32.1)
[2019-05-20 23:36] LABS: ALBUMIN 3.7 gm/dl (3.1-4.5); ALKALINE PHOSPHATASE 75 U/L (45-117); BUN 29 mg/dl (7-24); CHLORIDE 109 mmol/L (98-107); CREATININE 1.79 mg/dL (0.70-1.30); POTASSIUM 4.1 mmol/L (3.5-5.1); SGOT/AST 20 IU/L (3-35); SGPT/ALT 31 U/L (12-78); SODIUM 141 mmol/L (136-145); TOTAL PROTEIN 7.8 gm/dL (6.4-8.2)
[2019-05-20 23:38] LABS: TROPONIN I < 0.015 ng/ml (<0.045)
[2019-05-21 01:04] VITALS: BP 139/75
[2019-05-21 01:47] VITALS: BP 182/67
--- NOTE | 2019-05-21 01:47 | NUR ---
A 83, admitted to 4E, under the services of KALIA Castro DO with a diagnosis of CHEST PAIN. Chief complaint is LEFT SIDED CHEST DISCOMFORT,SHAKING,EMESIS. Patient arrived via stretcher from ER. Monitor applied. Initial assessment completed. Vital signs taken and recorded. DR. ARIAS notified of admission to [address] 4E. Orders received. See assessment for past medical history, medications and allergies. Patient and/or family oriented to 4E. visitation policy reviewed. Clothing/patient valuable form completed. NOHEMI JONES RN
[2019-05-21] MEDS ORDERED: GABAPENTIN100 M2 PO (02:05)
[2019-05-21] MEDS ORDERED: FAMOTIDINE20 M1 PO (02:06)
[2019-05-21] MEDS ORDERED: LANTUS SOL100 UNIT/1 SQ (02:08)
[2019-05-21] MEDS ORDERED: VICTOZA 3-PAK6 MG/ML SC (02:10)
--- NOTE | 2019-05-21 03:12 | NUR ---
DR. ARIAS NOTIFIED THAT PATIENT MEDICATION RECONCILLIATION IS UP TO DATE.
--- NOTE | 2019-05-21 03:22 | NUR ---
MESSAGE LEFT WITH DEYANIRA AT DR. CONCEPCION'S ANSWERING SERVICE FOR CONSULT REFERENCE CHEST PAIN AND HISTORY OF CARDIAC STENT WITHOUT STENTS.
[2019-05-21 05:29] LABS: CREATININE 1.75 mg/dL (0.70-1.30); POTASSIUM 4.1 mmol/L (3.5-5.1)
[2019-05-21 05:38] LABS: THYROID STIM HORMONE (HS) 3.45 uIU/ml (0.358-4.75)
[2019-05-21 06:02] LABS: BASO # 0.1 10*3/uL (0.0-0.1); BASO % 0.9 % (0.0-1.0); EOS # 0.1 10*3/uL (0.0-0.4); EOS % 1.5 % (1.0-4.0); HEMATOCRIT 36.5 % (42.0-52.0); HEMOGLOBIN 11.8 g/dl (14.0-18.0); LYMPH # 1.4 10*3/uL (1.3-4.4); LYMPH % 14.7 % (27.0-41.0); MEAN CORPUSCULAR HGB 28.8 pg (27.0-31.0); MEAN CORPUSCULAR HGB CONC 32.3 g/dl (33.0-37.0); MEAN PLATELET VOLUME 9.5 fl (9.6-12.3); MONO # 0.6 10*3/uL (0.1-1.0); MONO % 6.3 % (3.0-9.0); NEUT # 7.3 10*3/uL (2.3-7.9); NEUT % 76.2 % (47.0-73.0); PLATELET COUNT AUTOMATED 286 10*3/uL (130-400); RED CELL DISTRI WIDTH 13.8 % (0-14.5); WHITE BLOOD COUNT 9.6 10*3/uL (4.8-10.8)
[2019-05-21 07:47] LABS: VITAMIN D, 25-HYDROXY 27.5 ng/mL (30-100)
[2019-05-21 08:00] VITALS: BP 188/82
--- NOTE | 2019-05-21 09:00 | NUR ---
Academic Vice President in to talk to patient. Patient states lives at home with . There are no steps in the home. Physician: giana [facility] Home health services: none Patient's level of ADLs: INDEPENDENT Patient has working utilities: all working DME: cane Follow-up physician's appointment after d/c: will be made by [facility] nurse director upon discharge Does patient want to access PORTAL?: no Discharge plan discussed with patient, he states he lives at home with his , he uses a cane for ambulation, he states he will return home when medically stable and denies any home need, case management will follow. BRIAN MEHTA
--- NOTE | 2019-05-21 11:30 | NUR ---
PATIENT TO STRESS TEST BY WHEELCHAIR.
[2019-05-21 12:00] VITALS: BP 179/75
--- NOTE | 2019-05-21 12:00 | NUR ---
INFORMED CONSENT OBTAINED FOR LEXISCAN NUCLEAR STRESS TEST WITH DR. SHIELDS. RESTING EKG NSR WITH A RESTING HR OF 94 WITH BP OF 170/78. LUNGS CLEAR WITH SPO2 OF 95% ON ROOM AIR. PT COMPLETED A 1:00 LEXISCAN PROTOCOL RECEIVING LEXISCAN 0.4 MG IV OVER 10 SECONDS. HAD NO CHEST PAIN OR ANY EKG CHANGES. HAD A PEAK HR OF 113 WITH BP OF 170/60. LAST RECOVERY HR OF 102 WITH BP OF 168/60. AWAITING SCANNING IN STABLE CONDITION.
--- NOTE | 2019-05-21 13:30 | NUR ---
PATIENT RETURNED FROM STRESS TEST, SEE SHIFT ASSESSMENTS FOR DETAILS, RESUMING MEDS AND DIET.
[2019-05-21 15:11] VITALS: BP 144/70
[2019-05-21] MEDS ORDERED: VITAMIN D32000 UNI1 PO (15:38)
[2019-05-21] MEDS ORDERED: NATURE'S BLEND F1 MG PO (15:38)
--- NOTE | 2019-05-21 16:42 | NUR ---
Discharge instructions reviewed with patient. Patient receptive and verbalizes understanding. Follow-up care arranged. Written instructions given to patient. PATIENT DISCHARGED TO [facility], AMBULATORY, FOR TRANSPORT HOME BY PRIVATE VEHICLE WITH FAMILY. LUIS MATHEW
== END 2019-05-21 16:42 | disposition home or self-care (01) ==
LOC: ED 22:32 → 4E 05-21 01:04 → EDHOLD 05-21 01:04 → 4E 05-21 01:20
PROVIDERS: Emergency Medicine; Student in an Organized Health Care Education/Training Program; ADMIT Internal Medicine
DX: R07.89 Other chest pain (principal); R11.2 Nausea with vomiting, unspecified; D72.9 Disorder of white blood cells, unspecified; D72.810 Lymphocytopenia; E87.8 Other disorders of electrolyte and fluid balance, not elsewhere classified; N18.3 Chronic kidney disease, stage 3 (moderate); E55.9 Vitamin D deficiency, unspecified; E78.5 Hyperlipidemia, unspecified; E11.40 Type 2 diabetes mellitus with diabetic neuropathy, unspecified; I12.9 Hypertensive chronic kidney disease with stage 1 through stage 4 chronic kidney disease, or unspecified chronic kidney disease; E11.22 Type 2 diabetes mellitus with diabetic chronic kidney disease; K21.9 Gastro-esophageal reflux disease without esophagitis; E66.01 Morbid (severe) obesity due to excess calories; R91.1 Solitary pulmonary nodule; D64.9 Anemia, unspecified; E11.65 Type 2 diabetes mellitus with hyperglycemia; Z79.4 Long term (current) use of insulin

== ENCOUNTER 2021-06-16 13:13 | Emergency (ER) | payer OTHER ==
[~2021-06-16 13:13] MED LIST changes: +FAMOTIDINE20 M1 PO; +LANTUS SOL100 UNIT/1 SQ; +NATURE'S BLEND F1 MG PO; +VICTOZA 3-PAK6 MG/ML SC; +VITAMIN D32000 UNI1 PO
[2021-06-16 13:17] VITALS: BP 186/69
[2021-06-16 14:02] LABS: BASO # 0.1 10*3/uL (0.0-0.1); BASO % 0.9 % (0.0-1.0); EOS # 0.1 10*3/uL (0.0-0.4); EOS % 0.9 % (1.0-4.0); HEMATOCRIT 32.5 % (42.0-52.0); LYMPH # 1.3 10*3/uL (1.3-4.4); LYMPH % 19.7 % (27.0-41.0); MEAN CELL VOLUME 86.2 fl (80.0-94.0); MEAN CORPUSCULAR HGB 29.2 pg (27.0-31.0); MEAN CORPUSCULAR HGB CONC 33.8 g/dl (33.0-37.0); MEAN PLATELET VOLUME 8.9 fl (9.6-12.3); MONO # 0.5 10*3/uL (0.1-1.0); MONO % 8.2 % (3.0-9.0); NEUT # 4.5 10*3/uL (2.3-7.9); NEUT % 70.1 % (47.0-73.0); PLATELET COUNT AUTOMATED 225 10*3/uL (130-400); RED BLOOD COUNT 3.77 10*6/uL (4.50-5.90); RED CELL DISTRI WIDTH 13.5 % (0-14.5); WHITE BLOOD COUNT 6.4 10*3/uL (4.8-10.8)
[2021-06-16 14:18] LABS: CREATININE 2.34 mg/dL (0.70-1.30); POTASSIUM 3.8 mmol/L (3.5-5.1); TOTAL PROTEIN 7.5 gm/dL (6.4-8.2)
[2021-06-16 16:11] LABS: BILIRUBIN Negative (Negative); BLOOD Negative (Negative); CLARITY Clear (Clear); COLOR Yellow (Yellow); GLUCOSE Trace (Negative); KETONE Negative (Negative); LEUKO ESTERASE Negative (Negative); NITRITE Negative (Negative); SPECIFIC GRAVITY 1.015 (1.001-1.030); UROBILINOGEN 0.2 E.U./dl (0.0-1.0)
[2021-06-16 16:32] LABS: RBC 0-2 rbc/hpf (0-2)
[2021-06-16 16:33] LABS: BACTERIA TRACE
== END 2021-06-16 16:30 | disposition home or self-care (01) ==
LOC: ED 13:13
PROVIDERS: Family Medicine
DX: N17.9 Acute kidney failure, unspecified (principal); R53.1 Weakness; Z88.8 Allergy status to other drugs, medicaments and biological substances; Z79.899 Other long term (current) drug therapy; Z79.82 Long term (current) use of aspirin; Z90.89 Acquired absence of other organs; Z98.890 Other specified postprocedural states; Z87.891 Personal history of nicotine dependence